=== PATIENT | male | born 1940 | race Caucasian/White ===

== ENCOUNTER 2023-12-27 11:27 | Emergency (ER) | payer OTHER, MEDICARE ==
[~2023-12-27] VITALS: Ht 160 cm; Wt 72.6 kg
[2023-12-27 11:27] VITALS: BP_SYST 167; PULSE 80; RESP 19; TEMP 96.9; O2SAT 98
[2023-12-27 13:30] VITALS: BP_SYST 150; PULSE 77; RESP 19; TEMP 96.3; O2SAT 96
== END 2023-12-27 13:30 | disposition home or self-care (01) ==
LOC: SED 11:27
DX: T83.038A Leakage of other urinary catheter, initial encounter (principal); Z88.5 Allergy status to narcotic agent; X58.XXXA Exposure to other specified factors, initial encounter
CPT/HCPCS: 99281

== ENCOUNTER 2024-01-10 13:42 | Emergency (ER) | payer OTHER, MEDICARE ==
[~2024-01-10] VITALS: Ht 160 cm; Wt 72.6 kg
[2024-01-10 14:06] VITALS: BP_SYST 123; PULSE 80; RESP 18; TEMP 97.1; O2SAT 98
[2024-01-10 14:47] LABS: BASOPHILS % (AUTO) 0.6 % (0.0-2.0); EOSINOPHILS # (AUTO) 0.4 K/uL (0.0-0.4); EOSINOPHILS % (AUTO) 6.2 % (0.0-4.0); HEMATOCRIT 36.2 % (36-54); HEMOGLOBIN 12.3 g/dL (14.0-18.0); LYMPHOCYTES % (AUTO) 15.9 % (20.5-51.5); MEAN CORPUSCULAR HEMOGLOBIN 30 pg (27-31); MEAN CORPUSCULAR HGB CONC 34 % (32-36); MEAN CORPUSCULAR VOLUME 87 fL (79.0-98.0); MONOCYTES # (AUTO) 0.6 K/uL (0.0-1.0); MONOCYTES % (AUTO) 10.2 % (1.7-9.3); NEUTROPHILS # (AUTO) 4.2 K/uL (1.8-7.7); NEUTROPHILS % (AUTO) 67.1 % (40.0-70.0); PLATELET COUNT (AUTO) 185 K/uL (130-430); RED BLOOD CELL COUNT(AUTO) 4.17 MIL/uL (4.2-6.2); RED CELL DISTRIBUTION WIDTH 14.3 % (9.0-15.0); WHITE BLOOD COUNT (AUTO) 6.2 K/uL (4.8-10.8)
[2024-01-10 15:05] LABS: ANION GAP 8 (5-15); CALCIUM 9.5 mg/dL (8.4-11.0); CARBON DIOXIDE 24 mmol/L (23-29); CHLORIDE 107 mmol/L (98-107); CREATININE 1.45 mg/dL (0.55-1.30); GLUCOSE 97 mg/dL (74-106); POTASSIUM 4.1 mmol/L (3.5-5.1); SODIUM SERUM 139 mmol/L (136-145); UREA NITROGEN, BLOOD 20 mg/dL (8-21)
[2024-01-10 16:01] LABS: BILIRUBIN,URINE NEGATIVE (NEGATIVE); BLOOD, URINE 3+ (NEGATIVE); CLARITY/URINE SLIGHTLY CLOUDY (CLEAR); COLOR,URINE YELLOW (YELLOW); GLUCOSE,URINE NEGATIVE (NEGATIVE); KETONES,URINE NEGATIVE (NEGATIVE); LEUKOCYTE ESTERASE ,URINE NEGATIVE (NEGATIVE); NITRITE, URINE NEGATIVE (NEGATIVE); PH,URINE 5.5 (5.0-8.0); PROTEIN URINE NEGATIVE (NEGATIVE); UROBILINOGEN,URINE 0.2 (0.2-1.0)
[2024-01-10 16:19] LABS: BACTERIA,URINE FEW /HPF (None Seen)
[2024-01-10 17:20] VITALS: BP_SYST 120; PULSE 68; RESP 20; TEMP 97.6; O2SAT 99
== END 2024-01-10 17:20 | disposition home or self-care (01) ==
LOC: SED 13:42
DX: Z46.6 Encounter for fitting and adjustment of urinary device (principal); Z88.5 Allergy status to narcotic agent
CPT/HCPCS: 36415; 80048; 81000; 81001; 81015; 85025; 99283

== ENCOUNTER 2024-02-18 17:14 | Inpatient (IN) | payer OTHER, MEDICARE ==
[~2024-02-18] VITALS: Ht 160 cm; Wt 67.6 kg
[2024-02-18 17:18] VITALS: BP_SYST 140; PULSE 78; RESP 18; TEMP 97.9; O2SAT 98
[2024-02-18 17:55] LABS: BASOPHILS # (AUTO) 0.1 K/uL (0.0-0.2); BASOPHILS % (AUTO) 1.2 % (0.0-2.0); EOSINOPHILS # (AUTO) 0.4 K/uL (0.0-0.4); EOSINOPHILS % (AUTO) 4.7 % (0.0-4.0); HEMATOCRIT 34.6 % (36-54); HEMOGLOBIN 11.7 g/dL (14.0-18.0); LYMPHOCYTES # (AUTO) 1.3 K/uL (1.0-5.5); LYMPHOCYTES % (AUTO) 15.9 % (20.5-51.5); MEAN CORPUSCULAR HEMOGLOBIN 29 pg (27-31); MEAN CORPUSCULAR HGB CONC 34 % (32-36); MEAN CORPUSCULAR VOLUME 85 fL (79.0-98.0); MONOCYTES # (AUTO) 0.7 K/uL (0.0-1.0); MONOCYTES % (AUTO) 9.2 % (1.7-9.3); NEUTROPHILS # (AUTO) 5.5 K/uL (1.8-7.7); PLATELET COUNT (AUTO) 187 K/uL (130-430); RED BLOOD CELL COUNT(AUTO) 4.05 MIL/uL (4.2-6.2); RED CELL DISTRIBUTION WIDTH 14.5 % (9.0-15.0)
[2024-02-18 18:13] LABS: ANION GAP 7 (5-15); CALCIUM 10.2 mg/dL (8.4-11.0); CARBON DIOXIDE 24 mmol/L (23-29); CHLORIDE 105 mmol/L (98-107); CREATININE 1.33 mg/dL (0.55-1.30); GLUCOSE 113 mg/dL (74-106); POTASSIUM 4.3 mmol/L (3.5-5.1); SODIUM SERUM 136 mmol/L (136-145); UREA NITROGEN, BLOOD 27 mg/dL (8-21)
[2024-02-18 19:11] LABS: ALBUMIN 3.2 g/dL (3.4-4.8); BILIRUBIN,DIRECT 0.1 mg/dL (0.0-0.3); TOTAL BILIRUBIN 0.3 mg/dL (0.0-1.0); TOTAL PROTEIN, SERUM 6.7 g/dL (6.4-8.3)
[2024-02-18 20:41] LABS: BILIRUBIN,URINE NEGATIVE (NEGATIVE); BLOOD, URINE TRACE (NEGATIVE); CLARITY/URINE CLEAR (CLEAR); COLOR,URINE STRAW (YELLOW); GLUCOSE,URINE NEGATIVE (NEGATIVE); KETONES,URINE NEGATIVE (NEGATIVE); LEUKOCYTE ESTERASE ,URINE 2+ (NEGATIVE); PH,URINE 7.5 (5.0-8.0); PROTEIN URINE TRACE (NEGATIVE)
[2024-02-18 20:42] LABS: BACTERIA,URINE MODERATE /HPF (None Seen); NITRITE, URINE POSITIVE (NEGATIVE); RBC,URINE NONE SEEN /HPF (0-3); UROBILINOGEN,URINE 0.2 (0.2-1.0)
[2024-02-18 20:43] LABS: MUCUS,URINE None Seen /LPF (None Seen)
[2024-02-18] MEDS ORDERED: POTA-360 PO (22:17)
[2024-02-18] MEDS ORDERED: AMLO2.5T50 PO (22:17)
[2024-02-18] MEDS ORDERED: METF-1069 PO (22:17)
[2024-02-18] MEDS ORDERED: SPIR25TA6 PO (22:17)
[2024-02-18] MEDS ORDERED: PANT40TA45 PO (22:17)
[2024-02-18] MEDS ORDERED: RAMI10CA42 PO (22:17)
[2024-02-18] MEDS ORDERED: ATOR-1 PO (22:17)
[2024-02-18] MEDS ORDERED: ASPI-1155 PO (22:21)
[2024-02-18] MEDS ORDERED: DARO300T PO (22:21)
[2024-02-18] MEDS: cefTRIAXone 1 GM IVPB PREMIX 50 ML IV ONE (22:25)
[2024-02-18] MEDS ORDERED: IPRATROPIUM BROM 0.5 MG/2.5 ML VIAL.NEB (ATROVENT) INH PRN (22:45)
[2024-02-18] MEDS ORDERED: ONDANSETRON HCL 4 MG/2 ML VIAL IVP PRN (22:45)
[2024-02-18] MEDS ORDERED: ALBUTEROL SULFATE 0.083% 2.5 MG/3 ML VIAL.NEB INH PRN (22:45)
[2024-02-18] MEDS ORDERED: HYDROcodone/ACETAMIN 5-325 MG TAB (NORCO/ VICODIN) PO PRN (22:45)
[2024-02-18] MEDS ORDERED: ACETAMINOPHEN 325 MG TABLET PO PRN (22:45)
[2024-02-18] MEDS: amLODIPine BESYLATE 5 MG TABLET PO ONE (23:51)
[2024-02-19] MEDS ORDERED: PIPERACILLIN/TAZOBACTAM 2.25 GM VIAL IV ONE ×3 (00:31→05:50)
[2024-02-19] MEDS: PIPERACILLIN/TAZOBACTAM 2.25 GM in D5W 50 ML IV SCH ×2 (00:32→11:40)
[2024-02-19 03:42] VITALS: BP_SYST 115; PULSE 82; O2SAT 97
[2024-02-19] MEDS ORDERED: DAROLUTAMIDE 300 MG PO SCH (09:00)
[2024-02-19 09:54] VITALS: BP_SYST 135; PULSE 63; RESP 16; TEMP 97.2; O2SAT 99
[2024-02-19 10:02] VITALS: BP_SYST 135; PULSE 63; RESP 16; TEMP 97.2
[2024-02-19] MEDS: PANTOPRAZOLE SODIUM 40 MG TAB PO SCH (10:30)
[2024-02-19] MEDS: ATORVASTATIN 20 MG TABLET PO SCH (10:30)
[2024-02-19] MEDS: lisinopriL 20 MG TABLET PO SCH (10:30)
[2024-02-19] MEDS: ENOXAPARIN SODIUM 30 MG/0.3 ML SYRINGE SUBCUT SCH (10:31)
[2024-02-19] MEDS: SPIRONOLACTONE 25 MG TABLET (ALDACTONE) PO SCH (10:31)
[2024-02-19] MEDS: ASPIRIN 81 MG TAB.CHEW PO SCH (10:31)
[2024-02-19 10:34] LABS: BASOPHILS % (AUTO) 0.6 % (0.0-2.0); EOSINOPHILS # (AUTO) 0.3 K/uL (0.0-0.4); HEMATOCRIT 40.8 % (36-54); HEMOGLOBIN 13.2 g/dL (14.0-18.0); LYMPHOCYTES # (AUTO) 0.9 K/uL (1.0-5.5); LYMPHOCYTES % (AUTO) 13.1 % (20.5-51.5); MEAN CORPUSCULAR HEMOGLOBIN 28 pg (27-31); MEAN CORPUSCULAR HGB CONC 32 % (32-36); MEAN CORPUSCULAR VOLUME 87 fL (79.0-98.0); MONOCYTES # (AUTO) 0.6 K/uL (0.0-1.0); MONOCYTES % (AUTO) 8.6 % (1.7-9.3); NEUTROPHILS # (AUTO) 5.3 K/uL (1.8-7.7); NEUTROPHILS % (AUTO) 73.7 % (40.0-70.0); PLATELET COUNT (AUTO) 176 K/uL (130-430); RED BLOOD CELL COUNT(AUTO) 4.68 MIL/uL (4.2-6.2); RED CELL DISTRIBUTION WIDTH 14.2 % (9.0-15.0); WHITE BLOOD COUNT (AUTO) 7.1 K/uL (4.8-10.8)
[2024-02-19 11:02] LABS: ANION GAP 5 (5-15); CALCIUM 10.4 mg/dL (8.4-11.0); CARBON DIOXIDE 26 mmol/L (23-29); CHLORIDE 105 mmol/L (98-107); CREATININE 1.15 mg/dL (0.55-1.30); GLUCOSE 107 mg/dL (74-106); POTASSIUM 4.4 mmol/L (3.5-5.1); SODIUM SERUM 136 mmol/L (136-145); UREA NITROGEN, BLOOD 20 mg/dL (8-21)
[2024-02-19 16:00] VITALS: BP_SYST 145; PULSE 76; RESP 18; TEMP 98.2; O2SAT 95
[2024-02-19] MEDS ORDERED: INSULIN REGULAR, HUMAN 100 UNITS/ML, 3 ML VIAL (humuLIN R) SUBCUT PRN (17:15)
[2024-02-19] MEDS ORDERED: DEXTROSE 50% JECT 50 ML DISP.SYRIN IVP PRN (17:15)
[2024-02-19] MEDS ORDERED: GLUCOSE (DEXTROSE) ORAL GEL -Adults PO PRN (17:15)
[2024-02-19] MEDS ORDERED: D5W 1,000 ML IV PRN (17:30)
[2024-02-19 20:00] VITALS: BP_SYST 135; PULSE 78; RESP 20; TEMP 97.5; O2SAT 95; O2SAT 96
[2024-02-19] MEDS: DAROLUTAMIDE 300 MG PO SCH (21:00)
[2024-02-20 00:35] VITALS: BP_SYST 115; PULSE 68; RESP 15; TEMP 97.9; O2SAT 68
[2024-02-20 08:00] VITALS: BP_SYST 102; PULSE 72; RESP 16; TEMP 97.7; O2SAT 72
[2024-02-20 08:48] VITALS: O2SAT 96
[2024-02-20 11:45] VITALS: BP_SYST 136; PULSE 78; RESP 17; TEMP 97; O2SAT 99
[2024-02-20 12:41] VITALS: O2SAT 97
[2024-02-20] MEDS ORDERED: LEVO750T64 PO (13:14)
[2024-02-20 14:44] VITALS: BP_SYST 136; PULSE 78; RESP 17; TEMP 97; O2SAT 97
== END 2024-02-20 16:00 | disposition home health service (06) | DRG 698 ==
LOC: SED 17:14 → STU 22:41
PROVIDERS: ADMIT Internal Medicine; ATTEND Internal Medicine
DX: T83.518A Infection and inflammatory reaction due to other urinary catheter, initial encounter (principal); G93.41 Metabolic encephalopathy; N39.0 Urinary tract infection, site not specified; I95.1 Orthostatic hypotension; I10 Essential (primary) hypertension; E11.9 Type 2 diabetes mellitus without complications; Z79.899 Other long term (current) drug therapy; B96.4 Proteus (mirabilis) (morganii) as the cause of diseases classified elsewhere; I35.0 Nonrheumatic aortic (valve) stenosis
CPT/HCPCS: 36415; 70450-TC; 71045; 80048; 80076; 81000; 81001; 81015; 82948; 83605; 84484; 85025; 87040; 87086; 87186; 93005; 93306; 94760; 96365; 97116-GP; 97530-GP; 99285; G0378; J0696; J1650; J1815; J2543; J7060